=== PATIENT | female | born 1950 | race Caucasian/White ===

== ENCOUNTER → 2017-12-11 | Outpatient (CLI) | payer MEDICARE, MEDICAID ==
--- NOTE | 2017-12-11 13:27 | RAD ---
EXAM DESCRIPTION: Shoulder,Left 2 or More Views CLINICAL HISTORY: 67 years Female, SHOULDER PAIN COMPARISON: None available. FINDINGS: The visualized bones are well-mineralized.No acute fracture or dislocation. The soft tissues appear grossly unremarkable. Mild degenerative changes are identified in the acromioclavicular joint. Irregularity along the greater tuberosity suggests rotator cuff pathology. IMPRESSION: Mild degenerative changes are identified in the acromioclavicular joint. Irregularity along the greater tuberosity suggests rotator cuff pathology. Electronically signed by: Steph Rodriguez MD 12/11/2017 1:26 PM CDT
== END ==
LOC: RAD 09:18
PROVIDERS: ATTEND Orthopaedic Surgery
DX: M25.512 Pain in left shoulder (principal)